=== PATIENT | male | born 1950 | race American Indian/Alaskan Native ===

== ENCOUNTER 2020-12-06 07:11 | Day surgery (SDC) | payer MEDICARE ==
[~2020-12-06 07:11] MED LIST: SODIUM CHLORIDE 0.9% 1000 ML 1,000 ML IV SCH
--- NOTE | 2020-12-06 07:50 | Anesthesia Day of Surgery ---
Anesthesia Day of Surgery - Day of Surgery Patient Examined: Yes Patient H&P Reviewed: Yes Patient is NPO: Yes Beta Blockers: No Cardiac Clearance: No Pulmonary Clearance: No Luis A's Test: N/A
--- NOTE | 2020-12-06 07:50 | Anesthesia Consultation ---
Anesthesia Consult and Med Hx Date of service: 12/06/20 - Airway Anesthetic Teeth Evaluation: Crowns ROM Head & Neck: Adequate Mental/Hyoid Distance: Adequate Mallampati Class: Class I Intubation Access Assessment: Good - Pulmonary Exam CTA: Yes - Pre-Operative Health Status ASA Pre-Surgery Classification: ASA2 Proposed Anesthetic Plan: MAC - Pulmonary Hx Smoking: Yes (Cigar) Hx Asthma: No Hx Respiratory Symptoms: No Hx Sleep Apnea: No - Cardiovascular System Hx Hypertension: No Hx Heart Attack/AMI: No Hx Angina: No - Central Nervous System Hx Neuromuscular Disorder: No Hx Seizures: No CVA: No Hx Psychiatric Problems: No - Gastrointestinal Hx Ulcer: No Hx Gastroesophageal Reflux Disease: No - Endocrine Hx Renal Disease: No Hx Liver Disease: No Hx Insulin Dependent Diabetes: No Hx Non-Insulin Dependent Diabetes: No Hx Thyroid Disease: No - Hematic Hx Anemia: No - Other Systems Hx Alcohol Use: No Hx Substance Use: No Hx Obesity: No - Additional Comments Anesthesia Medical History Comments: Patient denied previous anesthesia complications
[2020-12-06] MEDS ORDERED: LIDOCAINE MPF (2%) 20 MG/1 ML VIAL 5 ML ONE (08:28)
[2020-12-06] MEDS ORDERED: propofoL 200 MG/20 ML VIAL IV ONE ×2 (08:28→08:48)
--- NOTE | 2020-12-06 09:02 | Procedure Note ---
Date of procedure: 12/06/20 Pre-op diagnosis: Colon Polyp Screening Post-op diagnosis: other (No Colon Polyps noted/ Few,Left Colon Diverticuli/Minor,Internal Hemorrhoid) Procedure: Colonoscopy Anesthesia: MAC Surgeon: JAVIER YEPEZ Estimated blood loss: none Pathology: none Condition: stable Disposition: same day (Encourage fiber intake. Resumehome medication and follow up in 1 to 2 weeks ([phone]).)
--- NOTE | 2020-12-06 09:10 | Operative Report ---
DATE OF SURGERY: 12/06/2020 INDICATIONS: This is a 70-year-old gentleman who has never had a colonoscopy done before. Colonoscopy was done as part of colon polyp screening. DESCRIPTION OF PROCEDURE: Procedure was done after getting informed consent with MAC anesthesia. Initial rectal examination was unremarkable. The instrument was passed through the rectum onto the cecum, which was identified by the ileocecal valve and the appendiceal orifice. The cecum was also visualized in the retroverted view, no additional pathology was noted. The scope was withdrawn to the hepatic flexure and reintroduced to the cecum. The cecum, ascending colon, transverse colon, descending colon and sigmoid showed normal mucosa. There are a few scattered diverticula noted in the left colon. The rectum showed some mild to minor internal hemorrhoid on the retroverted view. No biopsies were done. There was no bleeding associated with the procedure. No complications associated with the procedure. ASSESSMENT: Colon polyp screening. No colon polyps noted. Few left colon diverticula. Minor internal hemorrhoids. PLAN: To encourage the patient to take fiber supplements. Resume home medication. Follow up in the office in 1-2 weeks' time. Procedure was done in the GI lab with assistance of the GI lab team, which included the GI nurse, Claudine ring and with the assistance of anesthesia. TID: [id number] RECEIPT: [id number] FAUSTINO/KORTNEY
[2020-12-06 09:36] VITALS: BP 124/73
--- NOTE | 2020-12-06 14:55 | Post Anesthesia Evaluation ---
- Post Anesthesia Evaluation Patient Participated: Yes Airway Patent: Yes Stable Respiratory Function: Yes Nausea/Vomiting: No Temp > 96.8F: Yes Pain Manageable: Yes Adequeate Hydration: Yes Anesthesia Complications: No Block Receding Appropriately: Not Applicable Patient on Ventilator: No
== END 2020-12-06 09:35 | disposition home or self-care (01) ==
LOC: GIO 07:11
DX: Z12.11 Encounter for screening for malignant neoplasm of colon (principal); K57.30 Diverticulosis of large intestine without perforation or abscess without bleeding; K64.8 Other hemorrhoids; F17.210 Nicotine dependence, cigarettes, uncomplicated; Z98.890 Other specified postprocedural states
CPT/HCPCS: G0121; J2704; J7030